=== PATIENT | male | born 1980 | race Caucasian/White ===

== ENCOUNTER → 2018-03-08 | Outpatient (CLI) | payer SELFPAY ==
--- NOTE | 2018-03-08 16:49 | RAD ---
EXAM DESCRIPTION: Ankle,Right 3 Views CLINICAL HISTORY: ANKLE PAIN COMPARISON: None. TECHNIQUE: 3 views right FINDINGS: A small ankle joint effusion is observed. The ankle mortise is intact. No fracturing is detected. IMPRESSION: Small ankle joint effusion is observed. No fracturing is detected. Electronically signed by: Jluis Edwards MD 03/08/2018 4:47 PM [facility]
--- NOTE | 2018-03-08 16:49 | RAD ---
EXAM DESCRIPTION: Shoulder,Right 2 or More Views CLINICAL HISTORY: SHOULDER PAIN COMPARISON: None. TECHNIQUE: 2 views right FINDINGS: Deformity of the right clavicle is observed from prior fracturing. The glenohumeral joint is normal in appearance. IMPRESSION: An old fracture of the right clavicle is observed. The shoulders otherwise unremarkable. Electronically signed by: Jluis Edwards MD 03/08/2018 4:48 PM [facility]
--- NOTE | 2018-03-08 16:50 | RAD ---
EXAM DESCRIPTION: Knee,Right 2 or More Views CLINICAL HISTORY: KNEE PAIN COMPARISON: None. TECHNIQUE: 2 views right FINDINGS: I see no bone joint or soft tissue abnormality. IMPRESSION: Normal right knee. Electronically signed by: Jluis Edwards MD 03/08/2018 4:48 PM [facility]
== END ==
LOC: RAD 11:22
DX: M25.561 Pain in right knee (principal); M25.571 Pain in right ankle and joints of right foot; M25.511 Pain in right shoulder; M25.471 Effusion, right ankle